=== PATIENT | female | born 1985 | race Caucasian/White ===

== ENCOUNTER 2017-10-12 14:20 | Emergency (ER) | payer MEDICAID, OTHER ==
[~2017-10-12] VITALS: Ht 165.1 cm; Wt 118.2 kg
[2017-10-12 14:25] VITALS: Ht 165.1 cm; Wt 118.2 kg
[2017-10-12] MEDS ORDERED: morphine 4 MG/ML VIAL IV STA (15:52)
[2017-10-12] MEDS ORDERED: SOD CHLORIDE 0.9% 1,000 ML IV STA ×2 (15:52)
[2017-10-12] MEDS ORDERED: ONDANSETRON 4 MG INJ IV STA (15:52)
--- NOTE | 2017-10-12 16:07 | ERD ---
ER Documentation Chief Complaint Chief Complaint 12 WEEKS PREG WITH THREATENED MISCARRIAGE PER OGKEL, +PAIN/LG AMT VAG BLEED HPI This is a very pleasant 32-year-old female that presents to the emergency department roughly 12 weeks dated by last menstrual period which was July 2017. The patient had been undergoing her first round of IVF. She has had significant outpatient PUMPER HELPER follow-up with an ultrasound that was performed 5 days prior to arrival. The patient was told at that time that she had demise. She had elected to undergo expectant management. She indicates that just prior to arrival she went to the bathroom and began to have significant vaginal bleeding but she stated was passing large clots consistent with roughly 1 cup. She felt lightheaded dizzy and had a sudden onset of severe abdominal cramping. Her immediately brought her to the emergency department to be further evaluated. She denies a headache. She has not experienced any fever shaking or chills. There is no alleviating or exacerbating factors to the abdominal cramping. She did not take any analgesic medication prior to arrival. ROS All systems reviewed and are negative except as per history of present illness. Medications Home Meds No Active Prescriptions or Reported Meds Allergies Allergies: Coded Allergies: No Known Allergy (Unverified , 10/12/17) Physical Exam Vitals Vital Signs Date Time Temp Pulse Resp B/P Pulse Ox O2 Delivery O2 Flow Rate FiO2 10/12/17 18:34 95 19 140/58 100 Room Air 10/12/17 18:00 82 22 140/58 100 Room Air 10/12/17 16:00 87 22 131/90 100 Room Air 10/12/17 14:25 99.5 125 22 145/77 97 Physical Exam Constitutional:Well-developed. Well-nourished. HEENT:Normocephalic. Atraumatic.Pupils were equal round reactive to light. Moist mucous membranes.No tonsillar exudates. No conjunctival pallor Neck: No nuchal rigidity. No lymphadenopathy. No posterior cervical spine tenderness or step-offs. Respiratory: Not using accessory muscles of respiration.Lungs were clear to auscultation bilaterally. No rhonchi. No rales. No wheezing. Cardiovascular: Regular rate regular rhythm.No murmurs. No rubs were appreciated.S1, S2 normal. Distal pulses are palpable 2+ bilaterally. GI: Abdomen was soft. Suprapubic tenderness and tenderness in the left lower quadrant. Uterus was not gravid. Non Distended. No pulsatile abdominal masses or bruits. No rebound. No guarding. Bowel sounds were present and normal. : Pelvic exam was performed by myself with female nurse chlorinator present. There was a small amount of blood present within the vaginal vault. No cervical motion tenderness no adnexal tenderness and no endocervical discharge. Cervix was open with large clots present. Muscle skeletal: Full range of motion of both the upper and lower extremities bilaterally.Normal muscle tone.No assymetrical calf tenderness or swelling. Skin: No petechia, no purpura. No lesions on the palms or the soles of the feet. No maculopapular rash. NEURO: Patient was alert, awake, orientated x3.No facial droop. Gait observed and normal with no ataxia.Speech had regular rate and rhythm. No focal neurological deficits. Result Diagram: 10/12/17 1556 10/12/17 1556 Results 24 hrs Laboratory Tests Test 10/12/17 15:56 White Blood Count 11.710^3/ul Red Blood Count 3.9910^6/ul Hemoglobin 12.0g/dl Hematocrit 37.0% Mean Corpuscular Volume 92.7fl Mean Corpuscular Hemoglobin 30.1pg Mean Corpuscular Hemoglobin Concent 32.4g/dl Red Cell Distribution Width 13.0% Platelet Count 36405^3/UL Mean Platelet Volume 11.0fl Neutrophils % 74.8% Lymphocytes % 16.6% Monocytes % 7.2% Eosinophils % 0.7% Basophils % 0.4% Nucleated Red Blood Cells % 0.0/100WBC Neutrophils # 8.710^3/ul Lymphocytes # 1.910^3/ul Monocytes # 0.810^3/ul Eosinophils # 0.110^3/ul Basophils # 0.110^3/ul Nucleated Red Blood Cells # 0.010^3/ul Sodium Level 141mmol/L Potassium Level 3.6mmol/L Chloride Level 106mmol/L Carbon Dioxide Level 23mmol/L Anion Gap 16 Blood Urea Nitrogen 8mg/dl Creatinine 0.53mg/dl Glucose Level 91mg/dl Calcium Level 8.9mg/dl Total Bilirubin 0.4mg/dl Direct Bilirubin 0.00mg/dl Indirect Bilirubin 0.4mg/dl Aspartate Amino Transf (AST/SGOT) 26IU/L Alanine Aminotransferase (ALT/SGPT) 31IU/L Alkaline Phosphatase 63IU/L Total Protein 7.9g/dl Albumin 4.4g/dl Globulin 3.50g/dl Albumin/Globulin Ratio 1.25 Beta HCG, Quantitative 3960.3mIU/ml Current Medications Medications (Trade) Dose Ordered Sig/Jaci Route PRN Reason Start Time Stop Time Status Last Admin Dose Admin Sodium Chloride 1,000 ml @ 1,000 mls/hr Q1H STAT IV 10/12/17 15:52 10/12/17 16:51 DC 10/12/17 16:13 Sodium Chloride (NS) 1,000 ml @ 1,000 mls/hr Q1H STAT IV 10/12/17 15:52 10/12/17 16:51 DC 10/12/17 16:13 Morphine Sulfate (morphine) 4 mg ONCE STAT IV 10/12/17 15:52 10/12/17 15:54 DC 10/12/17 16:15 Ondansetron HCl (Zofran Inj) 4 mg ONCE STAT IV 10/12/17 15:52 10/12/17 15:54 DC 10/12/17 16:15 Procedures/MDM This patient presented to the emergency department with a known history of demise with expectant management. Prior to arrival she had a significant amount of vaginal bleeding but was hemodynamically stable upon my evaluation. She immediately had IV access established was placed on a heel boom operator continuous pulse oximetry and IV access was established by nursing staff. She was given analgesic medication which included morphine and Zofran. The patient continued to pass a significant amount of vaginal clots. She attempted to ambulate and went to the bathroom and when urinating had a significant amount of blood that was present within the toilet bowl. She felt lightheaded and dizzy and was escorted back to her gurney. She will be given IV fluids but did not become hypotensive. At this time I did place an PUMPER HELPER consult and Dr. Calle kindly came to the bedside to reevaluate the patient. Observation Note: Time: 6 hours Family Hx: No Hypertension Evaluation: Multiple exams showed improving symptoms and no evidence of severe hemorrhage at this time. The patient had passed a large clot that appeared to have tissue present and likely was products of conception. The nurse sent this to the lab for evaluation. Dr. Solorzano had repeated the pelvic exam and the patient's cervix was now closed. Her pain had resolved and she was no longer actively bleeding. The patient will comfortable being discharged home with her and will follow up in the next 24 hours for repeat ultrasound performed by the PUMPER HELPER at the fertility clinic. The patient was O- blood type and therefore was given a RhoGam injection in the emergency department. The patient was discharged home in fair condition. They were instructed to return to the emergency department at any time if there was any worsening of their condition. The patient stated they would follow up with their PCP in the next 24-48 hours to initiate a suitable medication regimen under the care of their PCP as well as to allow their PCP to monitor any drug reactions. The patient was discharged home with prescriptions after they gave informed consent to the new medication. They were also fully informed by myself on the adverse effects and adverse drug interactions in order to provide adequate safeguards to prevent possible adverse reactions to medications. Departure Diagnosis: Primary Impression: demise Condition: Fair ODELL KWOK Oct 12, 2017 16:07
[2017-10-12 16:18] LABS: BASOPHIL # 0.1 10^3/ul (0.0-0.1); BASOPHILS % 0.4 % (0.0-2.0); EOSINOPHILS # 0.1 10^3/ul (0.0-0.5); EOSINOPHILS % 0.7 % (0.0-7.0); LYMPHOCYTES # 1.9 10^3/ul (0.8-2.9); LYMPHOCYTES % 16.6 % (15.0-51.0); MEAN CORPUSCULAR HEMOGLOBIN 30.1 pg (29.0-33.0); MEAN CORPUSCULAR HGB CONC 32.4 g/dl (32.0-37.0); MEAN CORPUSCULAR VOLUME 92.7 fl (82.0-101.0); MONOCYTE # 0.8 10^3/ul (0.3-0.9); MONOCYTES % 7.2 % (0.0-11.0); NEUTROPHIL # 8.7 10^3/ul (1.6-7.5); NEUTROPHILS % 74.8 % (39.0-77.0); PLATELET COUNT 261 10^3/UL (140-415); RED BLOOD COUNT 3.99 10^6/ul (4.20-5.40); WHITE BLOOD COUNT 11.7 10^3/ul (4.8-10.8)
[2017-10-12 16:39] LABS: ALBUMIN 4.4 g/dl (3.3-4.9); ALBUMIN/GLOBULIN RATIO 1.25; BILIRUBIN,INDIRECT 0.4 mg/dl (0-1.1); BILIRUBIN,TOTAL 0.4 mg/dl (0.2-1.3); CALCIUM 8.9 mg/dl (8.4-10.2); CREATININE 0.53 mg/dl (0.44-1.00); POTASSIUM 3.6 mmol/L (3.5-5.1); TOTAL PROTEIN 7.9 g/dl (6.1-8.1)
--- NOTE | 2017-10-12 17:19 | RADRPT ---
PROCEDURE: Obstetrical ultrasound . CLINICAL INDICATION: pelvic pain TECHNIQUE: Multiple sonographic images of the pelvis were obtained utilizing a transabdominal shannon hnique. The images were reviewed on a PACS workstation. COMPARISON: None. FINDINGS: There is a single intrauterine present with the crown-rump length measuring 0.7 cm which c orresponds to a calculated gestational age of 6 weeks and 4 days. No heart tones are identifie d. Free fluid noted within the endometrial and cervical canal. The ovaries are not visualized. No significant free fluid is present within the pelvis. No abnormal adnexal masses are present. RPTAT: AA IMPRESSION: Single intrauterine at 6 weeks and 4 days. No heart tones noted. Free fluid within endometrial and cervical canal most consistent with fe faye demise. Suggest short term follow-up non-emergent ultrasound and serial bHCG to rule out early viable pregna ncy with subchorionic hemorrhage. Physician Latrell Date Time Electronically viewed and signed by Physician Latrell on 10/12/2017 17:18 IA/
[2017-10-12] MEDS ORDERED: HYDR-906 PO (21:17)
[2017-10-12 22:38] VITALS: BP 155/85; PULSE 83; RESP 17; TEMP 98.5
== END 2017-10-12 22:41 | disposition home or self-care (01) ==
LOC: E/R 14:20
DX: O02.1 Missed abortion (principal)
CPT/HCPCS: 36415; 76801; 80053; 84702; 85025; 86850; 86900; 86901; 96374; 96375; J2270; J2405; J2790; J7030; Z7502

== ENCOUNTER 2018-07-19 15:40 | Emergency (ER) | END 2018-07-19 18:32 | disposition home or self-care (01) ==